=== PATIENT | male | born 1950 | race Caucasian/White ===

== ENCOUNTER 2019-09-03 08:08 | Day surgery (SDC) | payer MEDICARE ==
[~2019-09-03] VITALS: Ht 170.2 cm; Wt 72.5 kg
[~2019-09-03 08:08] MED LIST: THERA-D2000 UNIT PO; Vitamin K100 MCG PO; XYOSTED50 MG/0.5 INJ
--- NOTE | 2019-09-03 09:04 | NUR ---
Ambulatory in Day Surgery Patient states colon prep results clear. History, Chart, Medications and Allergies reviewed before start of procedure. Patient confirms NPO status and agrees with scheduled surgery. Patient States Post-Procedure ride home has been arranged.
--- NOTE | 2019-09-03 09:30 | NUR ---
09/03/19 0977 Tressa Zhang History, Chart, Medications and Allergies reviewed before start of procedure. PATIENT CONFIRMS NPO STATUS AND AGREES WITH SCHEDULED PROCEDURE. MONITOR INTACT WITH CONTINUOUS PULSE OXIMETRY AND INTERMITTENT BP. O2 VIA N/C INTACT THROUGHOUT SEDATION/PROCEDURE. 3-LEAD EKG REVIEWED WITH PHYSICIAN PRIOR TO START OF PROCEDURE. PATIENT DETERMINED TO BE ASA APPROPRIATE FOR PROPOFOL SEDATION PRIOR TO START OF PROCEDURE BY DR. PITTMAN.
--- NOTE | 2019-09-03 10:27 | NUR ---
Discharge instructions reviewed with patient. Patient verbalizes understanding. Copy given to patient to take home. DENIES NEEDING ANYTHING TO DRINK. NO PAIN. Discharged via wheelchair to private car for ride home.
== END 2019-09-03 10:32 | disposition home or self-care (01) ==
LOC: ORSCMMR 08:08 → ORD 09:00 → ORSCMMR 09:00
PROVIDERS: Internal Medicine Gastroenterology
PROC: 0DBK8ZX Excision of Ascending Colon, Via Natural or Artificial Opening Endoscopic, Diagnostic (ICD-10-PCS; principal; 2019-09-03 09:00)
DX: Z12.11 Encounter for screening for malignant neoplasm of colon (principal); Z80.0 Family history of malignant neoplasm of digestive organs; D12.2 Benign neoplasm of ascending colon; K57.30 Diverticulosis of large intestine without perforation or abscess without bleeding; Z79.899 Other long term (current) drug therapy
CPT/HCPCS: 88305; J2704; J7120